=== PATIENT | female | born 1985 | race Caucasian/White ===

== ENCOUNTER 2018-01-29 07:54 | Day surgery (SDC) | payer MEDICAID ==
[2018-01-29] VITALS (14 sets, daily range): BP systolic 95–129; BP diastolic 54–86
[~2018-01-29] VITALS: Ht 162.6 cm; Wt 60.2 kg
[~2018-01-29 07:54] MED LIST: ACYC-202 PO; Cefazolin 2GM/50ML dext iso,osmotic IVPB IV ONE; famotidine 20mg tablet PO ONE; ringers solution, lacted 1,000 ML IV SCH
[2018-01-29] MEDS ORDERED: LIDOcaine 1% (10mg/ml) 2ml vial ONE (08:32)
[2018-01-29 09:04] LABS: BASOPHILS % (AUTO) 0.6 % (0-1); EOSINOPHILS # (AUTO) 0.1 X10'3 (0-0.9); EOSINOPHILS % (AUTO) 1.6 % (0-6); LYMPHOCYTES # (AUTO) 1.7 X10'3 (1.1-4.8); LYMPHOCYTES % (AUTO) 21.3 % (21-51); MEAN CORPUSCULAR HEMOGLOBIN 29.6 PG (27.0-31.0); MEAN CORPUSCULAR HGB CONC 32.5 % (33.0-36.5); MEAN PLATELET VOLUME 8.6 FL (7.4-10.4); MONOCYTES # (AUTO) 0.3 X10'3 (0-0.9); NEUTROPHILS % (AUTO) 72.5 % (42-75); PRE OP HEMATOCRIT 40.9 % (35.0-45.0); PRE OP HEMOGLOBIN 13.3 g/dL (12.0-16.0); PRE OP PLATELET COUNT 237 X10'3 (140-440); RED CELL DISTRIBUTION WIDTH 12.7 % (11.5-14.5)
[2018-01-29 09:15] LABS: ALBUMIN 3.5 G/DL (3.4-5.0); ALKALINE PHOSPHATASE 62 IU/L (46-116); BLOOD UREA NITROGEN 14 MG/DL (7-18); BUN/CREATININE RATIO 18.7 (6.6-38.0); CALCIUM 8.3 MG/DL (8.5-10.1); CHLORIDE 107 MMOL/L (99-107); CREATININE 0.75 MG/DL (0.40-0.90); PRE OP ALT 23 U/L (30-65); PRE OP ANION GAP 8 (8-16); PRE OP AST 14 U/L (10-37); PRE OP BILIRUB, TOTAL 0.3 MG/DL (0.0-1.0); PRE OP GLUCOSE 84 MG/DL (70-104); PRE OP POTASSIUM 3.7 MMOL/L (3.4-5.1); PRE OP SODIUM 140 MMOL/L (135-145); TOTAL CARBON DIOXIDE 25.3 MMOL/L (24-32); TOTAL PROTEIN 7.1 G/DL (6.4-8.2); eGFR 90 ML/MIN
[2018-01-29 09:59] LABS: HCG SERUM QL NEGATIVE
[2018-01-29] MEDS ORDERED: methylene blue (5mg/ml) 50mg/10ml ampul IV ONE (10:51)
[2018-01-29] MEDS ORDERED: BUPIVAcaine/PF 2.5mg/ml (0.25%) 10ml vial ONE (10:51)
[2018-01-29] MEDS ORDERED: BUPIVAcaine/PF 7.5mg/ml (0.75%) 10ml vial ONE (10:52)
[2018-01-29] MEDS ORDERED: meperidine/PF 25mg/ml syringe IV PRN ×2 (10:55)
[2018-01-29] MEDS ORDERED: ondansetron/PF 4mg/2ml inj IV PRN (10:55)
[2018-01-29] MEDS ORDERED: morphine 4 MG/ML inj SYRINge IV PRN ×2 (10:55)
[2018-01-29] MEDS ORDERED: ringers solution, lacted 1,000 ML IV SCH (10:55)
[2018-01-29] MEDS ORDERED: proCHLORperazine 10 MG/2 ml inj IV PRN (10:55)
[2018-01-29] MEDS ORDERED: sevoflurane 250ml liquid IH ONE (11:04)
[2018-01-29] MEDS ORDERED: fentaNYL/PF 50MCG/1 ML 2ML syringe ONE (11:13)
[2018-01-29] MEDS ORDERED: midazolam 2 mg/2 ml injection ONE (11:14)
[2018-01-29] MEDS ORDERED: propofol inj 20 ML IV ONE (11:15)
[2018-01-29] MEDS ORDERED: dexamethasone sod phosphate 4mg/ml inj. ONE (12:04)
[2018-01-29] MEDS ORDERED: ondansetron/PF 4mg/2ml inj ONE (12:04)
[2018-01-29] MEDS: meperidine/PF 25mg/ml syringe IV PRN ×3 (12:43→13:05)
[2018-01-29] MEDS ORDERED: HYDROcodone/acetaminophen 5mg/325mg tablet PO ONE (12:55)
== END 2018-01-29 14:09 | disposition home or self-care (01) ==
LOC: PAS 07:54
PROVIDERS: ATTEND Surgery
DX: K64.4 Residual hemorrhoidal skin tags (principal); K64.8 Other hemorrhoids; Z87.442 Personal history of urinary calculi; Z79.891 Long term (current) use of opiate analgesic; Z79.899 Other long term (current) drug therapy; Z98.890 Other specified postprocedural states
CPT/HCPCS: 36415; 45330; 46922; 46947; 80053; 84703; 85025; A6224; A6449; J0690; J0780; J1100; J2175; J2250; J2270; J2405; J2704; J3010; J3490; J7120; A7000

== ENCOUNTER 2018-02-02 09:25 | Emergency (ER) | payer MEDICAID ==
[~2018-02-02] VITALS: Ht 162.6 cm; Wt 59.1 kg
[~2018-02-02 09:25] MED LIST changes: -Cefazolin 2GM/50ML dext iso,osmotic IVPB IV ONE; -famotidine 20mg tablet PO ONE; -ringers solution, lacted 1,000 ML IV SCH
[2018-02-02] MEDS ORDERED: pramoxine 1% foam spray 15gm TP PRN (10:35)
[2018-02-02] MEDS ORDERED: ondansetron/PF 4mg/2ml inj IV ONE (10:50)
[2018-02-02] MEDS ORDERED: famotidine/PF 10 mg/ml inj IV ONE (10:50)
[2018-02-02] MEDS ORDERED: normal saline 1000ML IV soln IVB ONE (10:50)
[2018-02-02 11:15] VITALS: BP 92/67
[2018-02-02] MEDS ORDERED: ONDA8TAB13 PO (12:13)
[2018-02-03] MEDS ORDERED: TRAM50TA2 PO (19:22)
== END 2018-02-02 12:37 | disposition home or self-care (01) ==
LOC: ER 09:26
DX: G89.18 Other acute postprocedural pain (principal); K62.89 Other specified diseases of anus and rectum; K59.00 Constipation, unspecified; Z79.899 Other long term (current) drug therapy
CPT/HCPCS: 74022; 96374; 96375; 99284; J2405; J3490; J7030

== ENCOUNTER 2018-02-03 17:27 | Emergency (ER) | payer MEDICAID ==
[~2018-02-03] VITALS: Ht 162.6 cm; Wt 59.1 kg
[~2018-02-03 17:27] MED LIST changes: +ONDA8TAB13 PO
[2018-02-03] MEDS ORDERED: traMADol 50MG tablet PO ONE (19:20)
[2018-02-03] MEDS ORDERED: TRAM50TA2 PO (19:22)
[2018-02-03 19:31] VITALS: BP 120/76
== END 2018-02-03 19:33 | disposition home or self-care (01) ==
LOC: ER 17:28
DX: K62.89 Other specified diseases of anus and rectum (principal); Z79.899 Other long term (current) drug therapy; Z90.49 Acquired absence of other specified parts of digestive tract
CPT/HCPCS: 99283

== ENCOUNTER 2018-02-06 12:15 | Emergency (ER) | payer MEDICAID ==
[~2018-02-06] VITALS: Ht 162.6 cm; Wt 57.0 kg
[~2018-02-06 12:15] MED LIST changes: +TRAM50TA2 PO
[2018-02-06] MEDS ORDERED: normal saline 1000ML IV soln IVB ONE (13:10)
[2018-02-06] MEDS ORDERED: ondansetron/PF 4mg/2ml inj IM ONE (13:10)
[2018-02-06 13:27] LABS: BASOPHILS % (AUTO) 0.5 % (0-1); EOSINOPHILS # (AUTO) 0.1 X10'3 (0-0.9); HEMATOCRIT 41.6 % (35.0-45.0); HEMOGLOBIN 13.9 g/dl (12.0-16.0); LYMPHOCYTES # (AUTO) 1.7 X10'3 (1.1-4.8); LYMPHOCYTES % (AUTO) 22.5 % (21-51); MEAN CORPUSCULAR HGB CONC 33.5 % (33.0-36.5); MEAN CORPUSCULAR VOLUME 89.6 FL (78-98); MEAN PLATELET VOLUME 8.1 FL (7.4-10.4); MONOCYTES # (AUTO) 0.6 X10'3 (0-0.9); MONOCYTES % (AUTO) 7.7 % (2-12); NEUTROPHILS % (AUTO) 67.3 % (42-75); PLATELET COUNT 288 X10'3 (140-440); RED BLOOD COUNT 4.64 X10'6 (4.20-5.60); RED CELL DISTRIBUTION WIDTH 12.4 % (11.5-14.5); WHITE BLOOD COUNT 7.4 X10'3 (4.5-11.0)
[2018-02-06 13:42] LABS: ALANINE AMINOTRANSFERASE 76 U/L (12-78); ALBUMIN 3.9 G/DL (3.4-5.0); ALBUMIN/GLOBULIN RATIO 0.9 (1.1-1.5); ALKALINE PHOSPHATASE 137 IU/L (46-116); ANION GAP 4 (8-16); ASPARTATE AMINO TRANSFERASE 32 U/L (10-37); BILIRUBIN,TOTAL 0.5 MG/DL (0.1-1.0); BLOOD UREA NITROGEN 8 MG/DL (7-18); BUN/CREATININE RATIO 8.8 (6.6-38.0); CALCIUM 9.3 MG/DL (8.5-10.1); CHLORIDE 101 MMOL/L (99-107); CREATININE 0.91 MG/DL (0.40-0.90); GLUCOSE 95 MG/DL (70-104); POTASSIUM 4.3 MMOL/L (3.5-5.1); SODIUM 137 MMOL/L (135-145); TOTAL CARBON DIOXIDE 31.8 MMOL/L (24-32); TOTAL PROTEIN 8.1 G/DL (6.4-8.2); eGFR 72 ML/MIN
[2018-02-06 13:47] LABS: HCG SERUM QL NEGATIVE
[2018-02-06] MEDS ORDERED: opium/belladonna alkaloids No. 15A 30mg rectal suppository RC STA (14:12)
[2018-02-06] MEDS ORDERED: ondansetron/PF 4mg/2ml inj IV ONE (14:15)
[2018-02-06] MEDS ORDERED: morphine 4 MG/ML inj SYRINge IV ONE (14:15)
[2018-02-06] MEDS ORDERED: iohexol 300mg/ml 100ml inj. ONE (14:42)
[2018-02-06] MEDS ORDERED: ONDA4TAB12 PO (16:41)
[2018-02-06] MEDS ORDERED: LACT10SO PO (16:41)
[2018-02-06 16:43] VITALS: BP 112/73
[2018-02-06] MEDS ORDERED: ACET-812 PO (17:07)
[2018-02-06] MEDS ORDERED: IBUP-1985 PO (17:07)
[2018-02-06] MEDS ORDERED: B030R RC (17:07)
[2018-02-06] MEDS ORDERED: FAMO40TA73 PO (17:14)
[2018-02-06 17:22] LABS: CLARITY,URINE CLEAR (Clear); COLOR,URINE STRAW (Yellow); GLUCOSE, URINE NEGATIVE (Neg); KETONES,URINE NEGATIVE (Neg); LEUKOCYTE ESTERASE ,URINE NEGATIVE (Neg); NITRITES, URINE NEGATIVE (Neg); OCCULT BLOOD,URINE NEGATIVE (Neg); PROTEIN,URINE NEGATIVE (Neg); UROBILINOGEN,URINE 0.2 E.U/dL (0.2-1.0)
[2018-02-06 17:24] LABS: UA COLLECTION TYPE STRAIGHT CATH
== END 2018-02-06 17:31 | disposition home or self-care (01) ==
LOC: ER 12:15
DX: G89.18 Other acute postprocedural pain (principal); K62.89 Other specified diseases of anus and rectum; K59.00 Constipation, unspecified; Z79.899 Other long term (current) drug therapy
CPT/HCPCS: 36415; 72193; 80053; 81003; 84703; 85025; 96372; 96374; 96375; 99285; A4353; J2270; J2405; J7030; Q9967

== ENCOUNTER 2018-02-10 19:08 | Emergency (ER) | payer MEDICAID ==
[~2018-02-10] VITALS: Ht 162.6 cm; Wt 56.6 kg
[~2018-02-10 19:08] MED LIST changes: +ACET-812 PO; +B030R RC; +FAMO40TA73 PO; +IBUP-1985 PO; +LACT10SO PO; +ONDA4TAB12 PO
[2018-02-10 19:15] VITALS: BP 120/79
[2018-02-10 19:35] LABS: URINE HCG NEGATIVE (NEG)
[2018-02-10 19:46] LABS: BASOPHILS % (AUTO) 0.2 % (0-1); EOSINOPHILS # (AUTO) 0.1 X10'3 (0-0.9); EOSINOPHILS % (AUTO) 0.4 % (0-6); HEMATOCRIT 43.4 % (35.0-45.0); HEMOGLOBIN 14.7 g/dl (12.0-16.0); LYMPHOCYTES # (AUTO) 1.5 X10'3 (1.1-4.8); LYMPHOCYTES % (AUTO) 10.3 % (21-51); MEAN CORPUSCULAR HEMOGLOBIN 30.3 PG (27.0-31.0); MEAN CORPUSCULAR HGB CONC 33.8 % (33.0-36.5); MEAN CORPUSCULAR VOLUME 89.7 FL (78-98); MEAN PLATELET VOLUME 7.9 FL (7.4-10.4); MONOCYTES # (AUTO) 0.4 X10'3 (0-0.9); MONOCYTES % (AUTO) 2.7 % (2-12); NEUTROPHILS # (AUTO) 12.8 X10'3 (1.8-7.7); NEUTROPHILS % (AUTO) 86.4 % (42-75); PLATELET COUNT 346 X10'3 (140-440); RED BLOOD COUNT 4.84 X10'6 (4.20-5.60); RED CELL DISTRIBUTION WIDTH 12.5 % (11.5-14.5); WHITE BLOOD COUNT 14.9 X10'3 (4.5-11.0)
[2018-02-10 19:56] LABS: PROTHROMBIN TIME 10.1 SECONDS (9.0-12.0)
[2018-02-10 19:56] LABS: CLARITY,URINE CLOUDY (Clear); COLOR,URINE BROWN (Yellow); GLUCOSE, URINE NEGATIVE (Neg); KETONES,URINE 15 mg/dl (Neg); LEUKOCYTE ESTERASE ,URINE LARGE (Neg); NITRITES, URINE POSITIVE (Neg); OCCULT BLOOD,URINE LARGE (Neg); PH,URINE 5.5 (4.8-8.0); PROTEIN,URINE 100 mg/dl (Neg)
[2018-02-10 20:02] LABS: ALANINE AMINOTRANSFERASE 70 U/L (12-78); ALBUMIN 4.2 G/DL (3.4-5.0); ALKALINE PHOSPHATASE 142 IU/L (46-116); AMYLASE 45 U/L (25-115); ANION GAP 11 (8-16); ASPARTATE AMINO TRANSFERASE 33 U/L (10-37); BILIRUBIN,TOTAL 0.3 MG/DL (0.1-1.0); BLOOD UREA NITROGEN 13 MG/DL (7-18); BUN/CREATININE RATIO 16.5 (6.6-38.0); CALCIUM 9.7 MG/DL (8.5-10.1); CHLORIDE 102 MMOL/L (99-107); CREATININE 0.79 MG/DL (0.40-0.90); GLUCOSE 98 MG/DL (70-104); LIPASE 80 U/L (73-393); SODIUM 138 MMOL/L (135-145); TOTAL CARBON DIOXIDE 25.2 MMOL/L (24-32); TOTAL PROTEIN 8.4 G/DL (6.4-8.2); eGFR 85 ML/MIN
[2018-02-10] MEDS ORDERED: HYDR-565 PO (20:11)
[2018-02-10 20:16] LABS: UA COLLECTION TYPE CLN CATCH MIDSTREAM
[2018-02-10 20:31] LABS: BACTERIA,URINE 1+ /HPF (Neg); MUCUS STRANDS FEW /LPF (Neg); RBC,URINE TNTC /HPF (0-2); SQUAMOUS EPITHELIAL CELL,UR NONE SEEN /LPF (FEW); WBC,URINE TNTC /HPF (0-4)
[2018-02-10] MEDS ORDERED: PHEN-824 PO (20:46)
[2018-02-10] MEDS ORDERED: FLO0.4C PO (20:46)
[2018-02-10] MEDS ORDERED: ONDA4TAB12 PO (20:46)
[2018-02-10] MEDS ORDERED: CEPH500C2 PO (20:46)
[2018-02-10] MEDS: opium/belladonna alkaloids No. 15A 30mg rectal suppository RC STA ×2 (20:52→21:31)
[2018-02-10] MEDS ORDERED: tamsulosin 0.4mg capsule PO STA (20:52)
[2018-02-10] MEDS ORDERED: cephalexin 250mg capsule PO ONE (20:55)
[2018-02-10] MEDS ORDERED: phenazopyridine 100mg tablet PO ONE (20:55)
== END 2018-02-10 21:36 | disposition home or self-care (01) ==
LOC: ER 19:09
DX: N39.0 Urinary tract infection, site not specified (principal); G89.18 Other acute postprocedural pain; Z87.442 Personal history of urinary calculi; Z79.899 Other long term (current) drug therapy
CPT/HCPCS: 36415; 80053; 81001; 81025; 82150; 83690; 85025; 85610; 87077; 87088; 87186; 99284

== ENCOUNTER 2022-03-20 09:45 | Emergency (ER) | payer MEDICAID ==
[~2022-03-20] VITALS: Ht 162.6 cm; Wt 76.4 kg
[~2022-03-20 09:45] MED LIST changes: +ACYC-129 PO; -ACYC-202 PO; -B030R RC; +HYDR-4353 PO; -LACT10SO PO; +LACT10SO3 PO; +PHEN-824 PO; -TRAM50TA2 PO
[2022-03-20 09:51] VITALS: BP 124/88
[2022-03-20 10:12] LABS: CLARITY,URINE CLEAR (Clear); COLOR,URINE YELLOW (Yellow); GLUCOSE, URINE NEGATIVE (Neg); KETONES,URINE NEGATIVE (Neg); LEUKOCYTE ESTERASE ,URINE TRACE (Neg); NITRITES, URINE NEGATIVE (Neg); OCCULT BLOOD,URINE TRACE-INTACT (Neg); PH,URINE 5.5 (4.8-8.0); PROTEIN,URINE NEGATIVE (Neg); UROBILINOGEN,URINE 0.2 E.U/dL (0.2-1.0)
[2022-03-20 10:15] LABS: UA COLLECTION TYPE CLN CATCH MIDSTREAM
[2022-03-20 10:18] LABS: BACTERIA,URINE FEW /HPF (Neg); MUCUS STRANDS NONE SEEN /LPF (Neg); RBC,URINE NONE SEEN /HPF (0-2); SQUAMOUS EPITHELIAL CELL,UR MODERATE /LPF (FEW); WBC CLUMPS,URINE FEW /HPF (NEGATIVE)
[2022-03-20] MEDS ORDERED: HYDROCORTISONE 28.35 GM CREAM.GM. RC STA (10:40)
[2022-03-20] MEDS ORDERED: hydrocort. acetate/pramoxine 10gm bottle RC ONE (11:00)
[2022-03-20] MEDS ORDERED: hydrocortisone acetate 25mg rectal suppository RC ONE (11:00)
[2022-03-20] MEDS ORDERED: HC A30CR2 RC (11:16)
[2022-03-20] MEDS ORDERED: CEPH-585 PO (11:16)
[2022-03-20] MEDS ORDERED: PHEN1SUP96 PR (11:21)
== END 2022-03-20 11:30 | disposition home or self-care (01) ==
LOC: ER 09:46
DX: N89.8 Other specified noninflammatory disorders of vagina (principal); K64.8 Other hemorrhoids; N39.0 Urinary tract infection, site not specified; K62.89 Other specified diseases of anus and rectum; Z87.442 Personal history of urinary calculi; Z79.2 Long term (current) use of antibiotics; Z79.899 Other long term (current) drug therapy
CPT/HCPCS: 81001; 87088; 87210; 99283; J7999

== ENCOUNTER 2022-03-20 20:34 | Emergency (ER) | payer MEDICAID ==
[~2022-03-20] VITALS: Ht 162.6 cm; Wt 76.4 kg
[~2022-03-20 20:34] MED LIST changes: +CEPH-585 PO; +HC A30CR2 RC; +PHEN1SUP96 PR
[2022-03-20 20:52] VITALS: BP 131/90
[2022-03-21] MEDS ORDERED: LIDOcaine 2% 10ml TOPICAL JELLY (Urojet) MM ONE ×2 (01:20)
== END 2022-03-21 01:42 | disposition home or self-care (01) ==
LOC: ER 20:35
DX: K64.8 Other hemorrhoids (principal); K62.89 Other specified diseases of anus and rectum; Z87.442 Personal history of urinary calculi; Z79.2 Long term (current) use of antibiotics; Z79.899 Other long term (current) drug therapy
CPT/HCPCS: 99282